=== PATIENT | male | born 1965 | race African-American/Black ===

== ENCOUNTER → 2017-09-08 | Outpatient (CLI) | payer OTHER | END | disposition home or self-care (01) | LOC: RAD 10:04 | PROVIDERS: ATTEND Family Medicine | DX: M17.11 Unilateral primary osteoarthritis, right knee (principal); M25.761 Osteophyte, right knee ==

== ENCOUNTER → 2018-08-14 | Outpatient (CLI) | payer OTHER | END | disposition home or self-care (01) | LOC: CFH 16:30 | PROVIDERS: ATTEND Family Medicine | DX: M17.11 Unilateral primary osteoarthritis, right knee (principal); M79.642 Pain in left hand ==

== ENCOUNTER → 2018-08-23 | Outpatient (CLI) | payer OTHER | END | disposition home or self-care (01) | LOC: CFH 08-14 16:22 | PROVIDERS: ATTEND Family Medicine | DX: S83.231A Complex tear of medial meniscus, current injury, right knee, initial encounter (principal); S83.271A Complex tear of lateral meniscus, current injury, right knee, initial encounter; X58.XXXA Exposure to other specified factors, initial encounter; Y93.89 Activity, other specified; Y92.89 Other specified places as the place of occurrence of the external cause; Y99.8 Other external cause status; M25.461 Effusion, right knee; M17.11 Unilateral primary osteoarthritis, right knee ==

== ENCOUNTER 2020-11-04 11:15 | Inpatient (IN) | payer OTHER ==
[~2020-11-04] VITALS: Ht 182.9 cm; Wt 87.8 kg
[2020-11-04] MEDS ORDERED: SODIUM CHLORIDE FLUSH 10ML SYR IVF ONE (12:00)
[2020-11-04] MEDS ORDERED: DEXAMETHASONE 4 MG/ML, 1ML IVPush ONE (12:00)
[2020-11-04] MEDS ORDERED: AMPICILLIN/SULBACTAM 3 GM in SODIUM CHLORIDE 0.9% 100 ML IV ONE (12:00)
[2020-11-04] MEDS ORDERED: SODIUM CHLORIDE 0.9% 1,000ML IVBOLUS ONE (12:00)
[2020-11-04 12:34] LABS: BASOPHILS % (AUTO) 1 % (0-1); EOSINOPHILS % (AUTO) 0 % (1-7); LYMPHOCYTES % (AUTO) 17 % (22-44); MEAN CORPUSCULAR HEMOGLOBIN 27.6 pg (27.5-34.5); MEAN CORPUSCULAR HGB CONC 33.2 g/dL (33.2-36.2); MEAN PLATELET VOLUME 6.7 fL (7.4-10.4); MONOCYTES % (AUTO) 12 % (2-9); NEUTROPHILS % (AUTO) 70 % (42-75); PLATELET COUNT 375 x10^3/uL (130-400); RED BLOOD COUNT 4.94 x10^6/uL (4.38-5.82); RED CELL DISTRIBUTION WIDTH 13.5 % (9.4-14.8)
[2020-11-04 12:35] LABS: MD NO
[2020-11-04 12:40] LABS: ALBUMIN 3.5 g/dL (3.4-5.0); ANION GAP 4 mmol/L (5-15); CHLORIDE 103 mmol/L (98-107); CREATININE 1.07 mg/dL (0.7-1.3)
--- NOTE | 2020-11-04 13:32 | NUR ---
PT WALKED BACK FROM TRIAGE WITH CHIEF COMPLAINT OF SORE THROAT SINCE TUESDAY.
[2020-11-04] MEDS ORDERED: DEXAMETHASONE 4 MG/ML, 1ML ONE ×2 (13:43→20:19)
[2020-11-04] MEDS ORDERED: BENZOCAINE 20% SPRAY 0.5ML TP ONE (14:00)
[2020-11-04] MEDS ORDERED: LIDOCAINE-MPF 1%, 5ML INFIL ONE (14:00)
--- NOTE | 2020-11-04 14:04 | NUR ---
PT UPRIGHT ON GURNEY AWAKE & WATCHING TV, RESPONDS APPROP TO STAFF, NAD- "JUST HURTS TO SWALLOW", COMFORT MEASURES PROVIDED, VISITOR AT BS, CALL LIGHT WITHIN REACH.
[2020-11-04] MEDS ORDERED: BENZOCAINE 20% SPRAY 0.5ML ONE (14:26)
[2020-11-04] MEDS ORDERED: LIDOCAINE-MPF 1%, 5ML ONE (14:26)
--- NOTE | 2020-11-04 15:03 | NUR ---
PT REMAINS UPRIGHT ON GURNEY AWAKE & WATCHING TV, RESPONDS APPROP TO STAFF, NAD AFTER I&D ATTEMPT, AWAITING CT, COMFORT MEASURES PROVIDED, VISITOR AT BS, CALL LIGHT WITHIN REACH.
--- NOTE | 2020-11-04 15:25 | NUR ---
PT TO CT
[2020-11-04] MEDS ORDERED: OMNIPAQUE 350 MG/ML, 100ML BOTTLE ONE (15:40)
--- NOTE | 2020-11-04 16:06 | NUR ---
PT UPRIGHT ON GURNEY AWAKE & WATCHING TV, RESPONDS APPROP TO STAFF, NAD, NO NEEDS AT THIS TIME, VISITOR AT BS, CALL LIGHT WITHIN REACH.
--- NOTE | 2020-11-04 17:01 | NUR ---
PT REMAINS UPRIGHT ON GURNEY AWAKE & WATCHING TV, RESPONDS APPROP TO STAFF, NAD, NO NEEDS AT THIS TIME, VISITOR AT BS, CALL LIGHT WITHIN REACH.
--- NOTE | 2020-11-04 18:02 | NUR ---
PT UPRIGHT ON GURNEY AWAKE & WATCHING TV, RESPONDS APPROP TO STAFF, NAD, NO NEEDS AT THIS TIME, VISITOR AT BS, CALL LIGHT WITHIN REACH.
[2020-11-04] MEDS ORDERED: ONDANSETRON 2MG/ML, 2ML IVPush PRN (18:30)
[2020-11-04] MEDS ORDERED: IBUPROFEN 600 MG TABLET PO PRN (18:30)
[2020-11-04] MEDS ORDERED: hydrALAzine 20 MG/ML, 1ML IVPush PRN (18:30)
[2020-11-04] MEDS ORDERED: KETOROLAC 30 MG/1 ML IM PRN (18:30)
[2020-11-04] MEDS ORDERED: morphine SULFATE 10 MG/ML, 1ML IVPush PRN (18:30)
[2020-11-04] MEDS ORDERED: ACETAMINOPHEN 325 MG TABLET PO PRN (18:30)
[2020-11-04] MEDS: SODIUM CHLORIDE 0.9% 1,000 ML IV SCH (18:30)
[2020-11-04] MEDS ORDERED: ONDANSETRON ODT 4 MG PO PRN (18:30)
[2020-11-04] MEDS ORDERED: LOSA100T14 PO (18:35)
[2020-11-04] MEDS ORDERED: SAXA1TBM2 PO (18:35)
[2020-11-04] MEDS ORDERED: PRAV40TA2 PO (18:35)
--- NOTE | 2020-11-04 18:54 | NUR ---
REPORT GIVEN TO FABIANA CIFUENTES
--- NOTE | 2020-11-04 18:55 | NUR ---
report received from elsie vann
[2020-11-04] MEDS: AMPICILLIN/SULBACTAM 3 GM in SODIUM CHLORIDE 0.9% 100 ML IV SCH (20:29)
[2020-11-04] MEDS: DEXAMETHASONE 4 MG/ML, 5ML IVPush SCH (20:29)
[2020-11-04] MEDS: INSULIN LISPRO 100 UNITS/ML, PEN SQ-INSULIN SCH (20:30)
--- NOTE | 2020-11-04 21:25 | NUR ---
PT SEEN BY SURGICAL MD, OKAY TO HAVE SOFT DIET AT THIS TIME, PT GIVEN SUGAR FREE JELLO AND PUDDING
--- NOTE | 2020-11-04 22:34 | NUR ---
PT WITH STEADY GAIT TO RESTROOM. PLACED ON HOSPITAL BED
--- NOTE | 2020-11-05 00:23 | NUR ---
BLOOD GLUCOSE OF 254. PER DR MIKA LIRA ORDER OF Q6 FINGERSTICK WHILE NPO AND CONTINUE ACHS SLIDING SCALE, GIVE INSULIN PER SLIDING SCALE FOR RIGHT NOW. 9 UNITS TO BE GIVEN. INSULIN REQUESTED FROM PHARMACY
[2020-11-05] MEDS ORDERED: INSULIN LISPRO 100 UNIT/ML, 3ML VIAL SQ-INSULIN ONE (01:00)
[2020-11-05] MEDS ORDERED: INSULIN LISPRO 100 UNITS/ML, PEN ONE (01:39)
--- NOTE | 2020-11-05 01:40 | NUR ---
PT RESTING, NO NEEDS AT THIS TIME
--- NOTE | 2020-11-05 03:16 | NUR ---
PT RESTING IN HOSPITAL BED, NO NEEDS AT THIS TIME
--- NOTE | 2020-11-05 04:00 | NUR ---
PT SLEEPING, NO NEEDS AT THIS TIME
[2020-11-05] MEDS: AMPICILLIN/SULBACTAM 3 GM in SODIUM CHLORIDE 0.9% 100 ML IV SCH ×4 (04:17→20:39)
[2020-11-05] MEDS: SODIUM CHLORIDE 0.9% 1,000 ML IV SCH ×2 (04:17→15:03)
--- NOTE | 2020-11-05 05:00 | NUR ---
PT SLEEPING, NO NEEDS AT THIS TIME
[2020-11-05 05:34] LABS: BASOPHILS % (AUTO) 0 % (0-1); EOSINOPHILS % (AUTO) 0 % (1-7); LYMPHOCYTES % (AUTO) 11 % (22-44); MEAN CORPUSCULAR HEMOGLOBIN 27.9 pg (27.5-34.5); MEAN CORPUSCULAR HGB CONC 33.7 g/dL (33.2-36.2); MEAN PLATELET VOLUME 6.8 fL (7.4-10.4); MONOCYTES % (AUTO) 6 % (2-9); NEUTROPHILS % (AUTO) 82 % (42-75); PLATELET COUNT 387 x10^3/uL (130-400); RED CELL DISTRIBUTION WIDTH 13.1 % (9.4-14.8)
[2020-11-05 05:37] LABS: MD NO
[2020-11-05 05:43] LABS: ANION GAP 5 mmol/L (5-15); CALCIUM 9.4 mg/dL (8.5-10.1); CHLORIDE 105 mmol/L (98-107)
[2020-11-05 05:44] LABS: CREATININE 0.91 mg/dL (0.7-1.3)
--- NOTE | 2020-11-05 06:23 | NUR ---
PT SLEEPING, NO NEEDS AT THIS TIME
--- NOTE | 2020-11-05 06:58 | NUR ---
report given to alem vann
--- NOTE | 2020-11-05 07:05 | NUR ---
REPORT RECEIVED FROM FABIANA RN
--- NOTE | 2020-11-05 07:49 | NUR ---
PT RESTING ON [facility] WITH EYES CLOSED. PT AWAKENED TO RN IN ROOM. PT STATES SOME THROAT SORENESS, BUT NO OTHER COMPLAINTS. PT NPO SINCE MIDNIGHT. ALL NEEDS MET AT THIS TIME. VSS.
[2020-11-05] MEDS ORDERED: DEXAMETHASONE 4 MG/ML, 5ML ONE ×2 (08:12→16:27)
[2020-11-05] MEDS: DEXAMETHASONE 4 MG/ML, 5ML IVPush SCH ×2 (08:20→19:54)
[2020-11-05] MEDS: INSULIN LISPRO 100 UNITS/ML, PEN SQ-INSULIN SCH ×3 (08:29→15:53)
--- NOTE | 2020-11-05 08:30 | NUR ---
PT GLUCOSE 149. NO INSULIN INDICATED.
[2020-11-05] MEDS ORDERED: DEXAMETHASONE 4 MG/ML, 5ML IVPush SCH (09:00)
--- NOTE | 2020-11-05 09:27 | NUR ---
CLARIFIED WITH DR MANDEL THAT PT COULD HAVE CLEAR LIQUIDS UNTIL 1200. PT PROVIDED CLEAR LIQUIDS.
--- NOTE | 2020-11-05 11:05 | NUR ---
PT MEDICATED PER JAN. BLOOD SUGAR 219.
--- NOTE | 2020-11-05 14:18 | NUR ---
REPORT TO VANE COLIN
[2020-11-05 14:33] VITALS: BP 131/78
[2020-11-05] MEDS ORDERED: AMOX1TAB64 PO (15:39)
[2020-11-05] MEDS ORDERED: IBUP-1222 PO (15:39)
[2020-11-05] MEDS ORDERED: OXYMETAZOLINE NASAL SPRAY 0.05%,30ML ONE (16:27)
[2020-11-05] MEDS ORDERED: CHLORHEXIDINE 15 ML UDC MM ONE (16:30)
[2020-11-05] MEDS ORDERED: FENTANYL PF 250 MCG/5ML ONE (16:48)
[2020-11-05] MEDS ORDERED: MIDAZOLAM 1 MG/ML, 2ML ONE (16:48)
[2020-11-05] MEDS ORDERED: HYDROmorphone 1 MG/ML, 1ML INJ IVPush PRN (17:30)
[2020-11-05] MEDS ORDERED: KETOROLAC 30 MG/1 ML ONE (17:30)
[2020-11-05] MEDS ORDERED: OXYcodone 5 MG/5 ML ORAL.SOL UDC PO PRN (17:30)
[2020-11-05] MEDS ORDERED: ONDANSETRON 2MG/ML, 2ML IVPush PRN (17:30)
[2020-11-05] MEDS ORDERED: PROMETHAZINE 25 MG/ML, 1ML IVPush PRN (17:30)
[2020-11-05] MEDS ORDERED: EPHEDRINE 50 MG/ML, 1ML IVPush PRN (17:30)
[2020-11-05] MEDS ORDERED: ACETAMINOPHEN 325 MG TABLET PO PRN (17:30)
[2020-11-05] MEDS ORDERED: hydrALAzine 20 MG/ML, 1ML IV PRN (17:30)
[2020-11-05] MEDS ORDERED: FENTANYL PF 100 MCG/2ML IV PRN (17:30)
[2020-11-05] MEDS ORDERED: LABETALOL 5MG/ML, 20ML IV PRN (17:30)
[2020-11-05] MEDS ORDERED: ONDANSETRON 2MG/ML, 2ML ONE (17:50)
[2020-11-05] MEDS ORDERED: DEXAMETHASONE 4 MG/ML, 1ML ONE ×2 (17:50→19:50)
[2020-11-05] MEDS ORDERED: SUCCINYLCHOLINE 20 MG/ML, 10ML ONE (17:50)
[2020-11-05] MEDS ORDERED: PROPOFOL 10 MG/ML, 20ML ONE (17:50)
[2020-11-05] MEDS ORDERED: OXYcodone 5 MG/5 ML ORAL.SOL UDC ONE (18:22)
[2020-11-05 19:09] VITALS: BP 117/78
[2020-11-05 21:16] VITALS: BP 120/79
== END 2020-11-05 21:46 | disposition home or self-care (01) | DRG 145 ==
LOC: ED 15:49 → EDIP 16:33 → 4NE 11-05 14:35
PROVIDERS: ADMIT Hospitalist; ATTEND Hospitalist
PROC: 0C9PXZZ Drainage of Tonsils, External Approach (ICD-10-PCS; principal; 2020-11-04)
DX: J36 Peritonsillar abscess (principal); E11.65 Type 2 diabetes mellitus with hyperglycemia; E78.5 Hyperlipidemia, unspecified; I10 Essential (primary) hypertension; Z20.828 Contact with and (suspected) exposure to other viral communicable diseases; Z96.651 Presence of right artificial knee joint
CPT/HCPCS: 36415; 70491; 80048; 82040; 82962; 83036; 85025; 87635; J0295; J1100; J1885; J2250; J2405; J2704; J3010; Q9967; J0330; J1815; J7030